=== PATIENT | female | born 1960 | race Hispanic/Latino ===

== ENCOUNTER 2018-06-05 08:06 | Outpatient (CLI) | payer BC ==
--- NOTE | 2018-06-05 12:07 | NM ---
NUCLEAR MEDICINE GASTRIC EMPTYING EXAM: 06/05/2018 HISTORY: A 57-year-old female with early satiety. TECHNIQUE: The patient ingested 2.2 millicuries of sulfur colloid in a scrambled egg, and anterior imaging of th e abdomen was obtained over two hours. FINDINGS: There is activity within the stomach on immediate post ingestion imaging. There is 45% emptying at 3 0 minutes, 76% emptying at 1 hour, and 100% emptying at 2 hours. T-1/2 is estimated at 30 minutes. IMPRESSION: Normal gastric emptying examination. POS: [id number]
== END 2018-06-05 08:07 | disposition home or self-care (01) ==
LOC: NM 08:06
PROVIDERS: ATTEND Internal Medicine
DX: R68.81 Early satiety (principal)
CPT/HCPCS: 78264; A9541